=== PATIENT | male | born 1995 | race Caucasian/White ===

== ENCOUNTER 2016-04-29 13:52 | Emergency (ER) | payer BC ==
[~2016-04-29 13:52] MED LIST: CELE10TA PO; No home medications
--- NOTE | 2016-04-29 16:42 | EDDOCDS ---
Nurse's Notes [facility] Name: Ha Julian Age: 20 yrs Sex: Male : 1995 Arrival Date: 04/29/2016 Time: 13:52 Bed TR7 Private MD: NO PRIMARY PHYSICIAN, . Diagnosis: Chest pain on breathing;Nausea and vomiting Presentation: 04/29 14:13 Presenting complaint: Patient states: Went out to drink last night. Had 3 beers. when rs3 came home, had abdominal pain, vomiting and diarrhea, right side chest pain since this morning. Aspirin was not taken prior to arrival. Adult Sepsis Screening: The patient does not have new or worsening altered mentation. Patient's respiratory rate is less than 22. Systolic blood pressure is greater than 100. Patient has a qSOFA score of 0- Negative Sepsis Screen. Suicide/Homicide risk assessment- the patient denies having any suicidal and/or homicidal ideations and does not present with any other emotional, behavioral or mental health complaints. Status: Patient is not a center sales and service associate or dependent. Transition of care: patient was not received from another setting of care. 14:13 Acuity: LEANN Level 3 rs3 14:13 Method Of Arrival: Walkin/Carried/Asstd rs3 Triage Assessment: 14:16 General: Appears in no apparent distress. Pain: Location: anterior aspect of right rs3 upper chest and right breast. Pt Declines HIV testing. Cardiovascular: Chest pain is described as Pain is 5 out of 10 on a pain scale. radiates Does not radiate. episodes are intermittent began since this morning. Historical: - Allergies: no known allergies; - Home Meds: 1. none - PMHx: none; - PSHx: none; - Social history: Smoking status: Patient uses tobacco products, current some day smoker. No barriers to communication noted, The patient speaks fluent Serbian. - Family history: Not pertinent. - : The pt / caregiver states he / she is not on anticoagulants. Home medication list is obtained from the patient. - Exposure Risk Screening:: None identified. Screenin:14 Screening information is obtained from the patient. Fall risk: No risks identified. ms2 Assistance ADL's: requires no assistance with activities of daily living. Abuse/DV Screen: The patient / caregiver reports he/she is: not in a situation that causes fear, pain or injury. Nutritional screening: No deficits noted. Advance Directives: Currently, there is no health care proxy. There is no active DNR order. There is no living will. There is no Power of Diversity Manager. Advance directive information has not previously been placed in an [facility] medical record. Further advance directive information is declined. home support is adequate. Assessment: 16:14 General: Appears in no apparent distress. Pain: Location: chest Pain currently is 4 out ms2 of 10 on a pain scale. Neurological: Level of Consciousness is awake, alert, obeys commands. Cardiovascular: No deficits noted. Respiratory: Airway is patent Respiratory effort is even, unlabored, Respiratory pattern is regular, symmetrical. Derm: Skin is pink, warm & dry. Musculoskeletal: Range of motion intact in all extremities. 16:17 Cardiovascular: Rhythm is NA. ms2 Vital Signs: 13:53 BP 144 / 85; Pulse 113; Resp 18 S; Temp 98.3(O); Pulse Ox 100% on R/A; Weight 68.04 kg dd6 (R); Height 6 ft. 0 in. (182.88 cm) (R); 13:53 Body Mass Index 20.34 (68.04 kg, 182.88 cm) dd6 Vitals: 13:53 Log In Time: April 29, 2016 at 13:51. dd6 ED Course: 13:53 Patient visited by Tavon López PCA. dd6 13:53 NO PRIMARY PHYSICIAN, . is Private Physician. dd6 13:53 Patient moved to Waiting dd6 13:54 Patient moved to Pre RCE dd6 14:16 Triage Initiated rs3 15:27 Patient moved to Triage 3 ct3 15:34 Omid Woo PA-C is PHCP. cc10 15:34 Kiran Quach MD is Attending Physician. cc10 16:07 Patient visited by Omid Woo PA-C. cc10 16:07 Patient visited by Omid Woo PA-C. cc10 16:12 Patient visited by Yuri Roldan RN. ms2 16:15 The patient / caregiver is instructed regarding the plan of care and ED course. Cardiac ms2 monitoring not applicable on this patient. 16:15 No IV's were initiated during this patient's visit. No procedures done that require ms2 assistance. 16:16 [facility] Payment Agreement was scanned into [employer] and attached to record. jp5 16:17 Patient moved to TR7 ct3 Order Results: There are currently no results for this order. Outcome: 16:07 Discharge ordered by Provider. cc10 16:16 Discharge Assessment: patient administered narcotics - no. The following High Risk ms2 Discharge criteria are identified: None. Discharged to home ambulatory, with friend. Condition: stable. Discharge instructions given to patient, Instructed on discharge instructions, follow up and referral plans. medication usage, Demonstrated understanding of instructions, medications, Pt was receptive of discharge instructions/ teaching. Prescriptions given X 2 faxed. No special radiology studies were completed. Property sent home with patient. 16:41 Patient left the ED. ms2 Signatures: Yuri RoldanRN RN ms2 Tavon López, DIE WELDER DIE WELDER dd6 Ashley YouRN RN rs3 Alisa Ritter, DIE WELDER DIE WELDER ct3 Omid Woo, PA-C PA-C cc10 Amena Perez jp5 Corrections: (The following items were deleted from the chart) 16:15 16:12 General: Appears in no apparent distress, Behavior is cooperative, ms2 ms2 MTDD
--- NOTE | 2016-04-29 16:42 | EDDOCDS ---
Physician Documentation [facility] Name: Ha Julian Age: 20 yrs Sex: Male : 1995 Arrival Date: 04/29/2016 Time: 13:52 Bed TR7 Private MD: NO PRIMARY PHYSICIAN, . Disposition: 04/29/16 16:07 Discharged to Home/Self Care. Impression: Chest pain on breathing, Nausea and vomiting. - Condition is Stable. - Discharge Instructions: Costochondritis, Nausea and Vomiting. - Prescriptions for Naprosyn 500 mg Oral Tablet - take 1 tablet by ORAL route 2 times per day take with food; 30 tablet. ZOFRAN ODT 4 mg - dissolve 1 tablet by ORAL route 4 times per day As needed do not chew, do not swallow whole; 10 tablet. - Medication Reconciliation, Local Pharmacy Hours form. - Follow up: Emergency Department; When: As needed; Reason: Worsening of conditions. Follow up: Private Physician; When: Call to arrange an appointment; Reason: Wound/Symptom Recheck, Recheck today's complaints, Worsening of conditions, Continuance of care. - Problem is new. - Symptoms have improved. Historical: - Allergies: no known allergies; - Home Meds: 1. none - PMHx: none; - PSHx: none; - Social history: Smoking status: Patient uses tobacco products, current some day smoker. No barriers to communication noted, The patient speaks fluent German. - Family history: Not pertinent. - : The pt / caregiver states he / she is not on anticoagulants. Home medication list is obtained from the patient. - Exposure Risk Screening:: None identified. Vital Signs: 04/29 13:53 BP 144 / 85; Pulse 113; Resp 18 S; Temp 98.3(O); Pulse Ox 100% on R/A; Weight 68.04 kg dd6 / 150 lbs (R); Height 6 ft. 0 in. (182.88 cm) (R); 13:53 Body Mass Index 20.34 (68.04 kg, 182.88 cm) dd6 MDM: 16:16 [facility] Payment Agreement was scanned into [employer] and attached to record. jp5 16:16 Financial registration complete. jp5 Signatures: Yuri Roldan RN RN ms2 Ashley You RN RN rs3 Omid Woo, PA-C PA-C cc10 Amena Perez jp5 The chart was reviewed and I authenticate all verbal orders and agree with the evaluation and treatment provided.Attachments: 16:16 [facility] Payment Agreement jp5 MTDD
--- NOTE | 2016-05-01 17:42 | EDDOCDS ---
Nurse's Notes [facility] Name: Ha Julian Age: 20 yrs Sex: Male : 1995 Arrival Date: 04/29/2016 Time: 13:52 Bed TR7 Private MD: NO PRIMARY PHYSICIAN, . Diagnosis: Chest pain on breathing;Nausea and vomiting Presentation: 04/29 14:13 Presenting complaint: Patient states: Went out to drink last night. Had 3 beers. when rs3 came home, had abdominal pain, vomiting and diarrhea, right side chest pain since this morning. Aspirin was not taken prior to arrival. Adult Sepsis Screening: The patient does not have new or worsening altered mentation. Patient's respiratory rate is less than 22. Systolic blood pressure is greater than 100. Patient has a qSOFA score of 0- Negative Sepsis Screen. Suicide/Homicide risk assessment- the patient denies having any suicidal and/or homicidal ideations and does not present with any other emotional, behavioral or mental health complaints. Status: Patient is not a message and delivery service pricer or dependent. Transition of care: patient was not received from another setting of care. 14:13 Acuity: LEANN Level 3 rs3 14:13 Method Of Arrival: Walkin/Carried/Asstd rs3 Triage Assessment: 14:16 General: Appears in no apparent distress. Pain: Location: anterior aspect of right rs3 upper chest and right breast. Pt Declines HIV testing. Cardiovascular: Chest pain is described as Pain is 5 out of 10 on a pain scale. radiates Does not radiate. episodes are intermittent began since this morning. Historical: - Allergies: no known allergies; - Home Meds: 1. none - PMHx: none; - PSHx: none; - Social history: Smoking status: Patient uses tobacco products, current some day smoker. No barriers to communication noted, The patient speaks fluent Nicaraguan. - Family history: Not pertinent. - : The pt / caregiver states he / she is not on anticoagulants. Home medication list is obtained from the patient. - Exposure Risk Screening:: None identified. Screenin:14 Screening information is obtained from the patient. Fall risk: No risks identified. ms2 Assistance ADL's: requires no assistance with activities of daily living. Abuse/DV Screen: The patient / caregiver reports he/she is: not in a situation that causes fear, pain or injury. Nutritional screening: No deficits noted. Advance Directives: Currently, there is no health care proxy. There is no active DNR order. There is no living will. There is no Power of [place]. Advance directive information has not previously been placed in an [facility] medical record. Further advance directive information is declined. home support is adequate. Assessment: 16:14 General: Appears in no apparent distress. Pain: Location: chest Pain currently is 4 out ms2 of 10 on a pain scale. Neurological: Level of Consciousness is awake, alert, obeys commands. Cardiovascular: No deficits noted. Respiratory: Airway is patent Respiratory effort is even, unlabored, Respiratory pattern is regular, symmetrical. Derm: Skin is pink, warm & dry. Musculoskeletal: Range of motion intact in all extremities. 16:17 Cardiovascular: Rhythm is NA. ms2 Vital Signs: 13:53 BP 144 / 85; Pulse 113; Resp 18 S; Temp 98.3(O); Pulse Ox 100% on R/A; Weight 68.04 kg dd6 (R); Height 6 ft. 0 in. (182.88 cm) (R); 13:53 Body Mass Index 20.34 (68.04 kg, 182.88 cm) dd6 Vitals: 13:53 Log In Time: April 29, 2016 at 13:51. dd6 ED Course: 13:53 Patient visited by Tavon López PCA. dd6 13:53 NO PRIMARY PHYSICIAN, . is Private Physician. dd6 13:53 Patient moved to Waiting dd6 13:54 Patient moved to Pre RCE dd6 14:16 Triage Initiated rs3 15:27 Patient moved to Triage 3 ct3 15:34 Omid Woo PA-C is PHCP. cc10 15:34 Kiran Quach MD is Attending Physician. cc10 16:07 Patient visited by Omid Woo PA-C. cc10 16:07 Patient visited by Omid Woo PA-C. cc10 16:12 Patient visited by Yuri Roldan RN. ms2 16:15 The patient / caregiver is instructed regarding the plan of care and ED course. Cardiac ms2 monitoring not applicable on this patient. 16:15 No IV's were initiated during this patient's visit. No procedures done that require ms2 assistance. 16:16 [facility] Payment Agreement was scanned into [employer] and attached to record. jp5 16:17 Patient moved to TR7 ct3 20:06 Patient name changed from Ha\Molina\Kam\S\Eliel\S\ to Ha\S\Taiwo\S\Eliel. EDMS 04/30 11:10 T-Sheet-- Draft Copy was scanned into [employer] and attached to record. gb Order Results: There are currently no results for this order. Outcome: 04/29 16:07 Discharge ordered by Provider. cc10 16:16 Discharge Assessment: patient administered narcotics - no. The following High Risk ms2 Discharge criteria are identified: None. Discharged to home ambulatory, with friend. Condition: stable. Discharge instructions given to patient, Instructed on discharge instructions, follow up and referral plans. medication usage, Demonstrated understanding of instructions, medications, Pt was receptive of discharge instructions/ teaching. Prescriptions given X 2 faxed. No special radiology studies were completed. Property sent home with patient. 16:41 Patient left the ED. ms2 Signatures: [facility] Yuri Roldan,RN RN ms2 Marie Lewis, Reg Reg gb Tavon López, NET SOLUTIONS ARCHITECT NET SOLUTIONS ARCHITECT dd6 Ashley You,RN RN rs3 Alisa Ritter, NET SOLUTIONS ARCHITECT NET SOLUTIONS ARCHITECT ct3 Omid Woo PA-C PAZaria cc10 Amena Perez jp5 Corrections: (The following items were deleted from the chart) 16:15 16:12 General: Appears in no apparent distress, Behavior is cooperative, ms2 ms2 Chart Complete MTDD
--- NOTE | 2016-05-01 17:42 | EDDOCDS ---
Physician Documentation [facility] Name: Ha Julian Age: 20 yrs Sex: Male : 1995 Arrival Date: 04/29/2016 Time: 13:52 Bed TR7 Private MD: NO PRIMARY PHYSICIAN, . Disposition: 04/29/16 16:07 Discharged to Home/Self Care. Impression: Chest pain on breathing, Nausea and vomiting. - Condition is Stable. - Discharge Instructions: Costochondritis, Nausea and Vomiting. - Prescriptions for Naprosyn 500 mg Oral Tablet - take 1 tablet by ORAL route 2 times per day take with food; 30 tablet. ZOFRAN ODT 4 mg - dissolve 1 tablet by ORAL route 4 times per day As needed do not chew, do not swallow whole; 10 tablet. - Medication Reconciliation, Local Pharmacy Hours form. - Follow up: Emergency Department; When: As needed; Reason: Worsening of conditions. Follow up: Private Physician; When: Call to arrange an appointment; Reason: Wound/Symptom Recheck, Recheck today's complaints, Worsening of conditions, Continuance of care. - Problem is new. - Symptoms have improved. Historical: - Allergies: no known allergies; - Home Meds: 1. none - PMHx: none; - PSHx: none; - Social history: Smoking status: Patient uses tobacco products, current some day smoker. No barriers to communication noted, The patient speaks fluent Kiswahili. - Family history: Not pertinent. - : The pt / caregiver states he / she is not on anticoagulants. Home medication list is obtained from the patient. - Exposure Risk Screening:: None identified. Vital Signs: 04/29 13:53 BP 144 / 85; Pulse 113; Resp 18 S; Temp 98.3(O); Pulse Ox 100% on R/A; Weight 68.04 kg dd6 / 150 lbs (R); Height 6 ft. 0 in. (182.88 cm) (R); 13:53 Body Mass Index 20.34 (68.04 kg, 182.88 cm) dd6 MDM: 16:16 [facility] Payment Agreement was scanned into [employer] and attached to record. jp5 16:16 Financial registration complete. jp5 04/30 11:10 T-Sheet-- Draft Copy was scanned into [employer] and attached to record. gb Signatures: Yuri Roldan RN RN ms2 Marie Lewis, Reg Reg gb Ashley You RN RN rs3 Omid Woo, PARodneyC PARodneyC cc10 Amena Perez jp5 The chart was reviewed and I authenticate all verbal orders and agree with the evaluation and treatment provided.Attachments: 04/29 16:16 [facility] [place] jp5 04/30 11:10 T-Sheet-- Draft Copy gb Chart Complete MTDD
--- NOTE | 2016-05-01 17:42 | EDDOCDS ---
Physician Documentation [facility] Name: Ha Julian Age: 20 yrs Sex: Male : 1995 Arrival Date: 04/29/2016 Time: 13:52 Bed TR7 Private MD: NO PRIMARY PHYSICIAN, . Disposition: 04/29/16 16:07 Discharged to Home/Self Care. Impression: Chest pain on breathing, Nausea and vomiting. - Condition is Stable. - Discharge Instructions: Costochondritis, Nausea and Vomiting. - Prescriptions for Naprosyn 500 mg Oral Tablet - take 1 tablet by ORAL route 2 times per day take with food; 30 tablet. ZOFRAN ODT 4 mg - dissolve 1 tablet by ORAL route 4 times per day As needed do not chew, do not swallow whole; 10 tablet. - Medication Reconciliation, Local Pharmacy Hours form. - Follow up: Emergency Department; When: As needed; Reason: Worsening of conditions. Follow up: Private Physician; When: Call to arrange an appointment; Reason: Wound/Symptom Recheck, Recheck today's complaints, Worsening of conditions, Continuance of care. - Problem is new. - Symptoms have improved. Historical: - Allergies: no known allergies; - Home Meds: 1. none - PMHx: none; - PSHx: none; - Social history: Smoking status: Patient uses tobacco products, current some day smoker. No barriers to communication noted, The patient speaks fluent Portuguese. - Family history: Not pertinent. - : The pt / caregiver states he / she is not on anticoagulants. Home medication list is obtained from the patient. - Exposure Risk Screening:: None identified. Vital Signs: 04/29 13:53 BP 144 / 85; Pulse 113; Resp 18 S; Temp 98.3(O); Pulse Ox 100% on R/A; Weight 68.04 kg dd6 / 150 lbs (R); Height 6 ft. 0 in. (182.88 cm) (R); 13:53 Body Mass Index 20.34 (68.04 kg, 182.88 cm) dd6 MDM: 16:16 [facility] Payment Agreement was scanned into [employer] and attached to record. jp5 16:16 Financial registration complete. jp5 04/30 11:10 T-Sheet-- Draft Copy was scanned into [employer] and attached to record. gb Signatures: Yuri Roldan RN RN ms2 Marie Lewis, Reg Reg gb Ashley You RN RN rs3 Omid Woo, PARodneyC PARodneyC cc10 Amena Perez jp5 The chart was reviewed and I authenticate all verbal orders and agree with the evaluation and treatment provided.Attachments: 04/29 16:16 [facility] [place] jp5 04/30 11:10 T-Sheet-- Draft Copy gb Chart Complete MTDD
== END 2016-04-29 16:41 | disposition home or self-care (01) ==
LOC: M ED 13:52
DX: R07.89 Other chest pain (principal); R11.2 Nausea with vomiting, unspecified; F17.210 Nicotine dependence, cigarettes, uncomplicated

== ENCOUNTER → 2016-10-17 | Outpatient (REF) | payer BC ==
[2016-10-17 12:27] LABS: ALBUMIN 4.4 GM/DL (3.2-5.2); ALBUMIN/GLOBULIN RATIO 1.57 (1.00-1.93); ALKALINE PHOSPHATASE 60 U/L (45-117); ALT/SGPT 19 U/L (12-78); ANION GAP 6 MEQ/L (8-16); AST/SGOT 7 U/L (15-37); BILIRUBIN,TOTAL 0.9 MG/DL (0.2-1.0); BLOOD UREA NITROGEN 18 MG/DL (7-18); CALCIUM LEVEL 9.4 MG/DL (8.5-10.1); CARBON DIOXIDE LEVEL 31 MEQ/L (21-32); CHLORIDE LEVEL 102 MEQ/L (98-107); CREATININE FOR GFR 0.91 MG/DL (0.70-1.30); GLOMERULAR FILTRATION RATE > 60.0 (>60); GLUCOSE, FASTING 108 MG/DL (70-105); POTASSIUM SERUM 3.7 MEQ/L (3.5-5.1); SODIUM LEVEL 139 MEQ/L (136-145); TOTAL PROTEIN 7.2 GM/DL (6.4-8.2)
== END ==
LOC: M SFHCPLAZ 07:48
PROVIDERS: ATTEND Physician Assistant
DX: F41.9 Anxiety disorder, unspecified (principal); F32.9 Major depressive disorder, single episode, unspecified; R53.83 Other fatigue

== ENCOUNTER 2018-01-31 16:29 | Emergency (ER) | payer OTHER, BC ==
[2018-01-31] MEDS: NORCO, ANEXSIA 5/325MG TABLET (HYDROcodone/ACETAMINOPHEN) PO (20:14)
[2018-01-31] MEDS: CYCLOBENZAPRINE 10 MG TAB PO (20:14)
== END 2018-01-31 20:34 | disposition home or self-care (01) ==
LOC: M ED 16:29
DX: S29.012A Strain of muscle and tendon of back wall of thorax, initial encounter (principal); S16.1XXA Strain of muscle, fascia and tendon at neck level, initial encounter; V43.52XA Car driver injured in collision with other type car in traffic accident, initial encounter; Y92.410 Unspecified street and highway as the place of occurrence of the external cause; Y93.9 Activity, unspecified; Y99.9 Unspecified external cause status; F32.9 Major depressive disorder, single episode, unspecified; Z79.899 Other long term (current) drug therapy
CPT/HCPCS: 72128

== ENCOUNTER 2018-02-17 14:29 | Emergency (ER) | payer OTHER, BC | END 2018-02-17 16:04 | disposition home or self-care (01) | LOC: M ED 14:29 | DX: S16.1XXA Strain of muscle, fascia and tendon at neck level, initial encounter (principal); S29.012A Strain of muscle and tendon of back wall of thorax, initial encounter; V49.9XXA Car occupant (driver) (passenger) injured in unspecified traffic accident, initial encounter | CPT/HCPCS: 99282 ==

== ENCOUNTER → 2019-02-08 | Outpatient (CLI) | payer BC ==
[~2019-02-08] MED LIST changes: +CITA40TA4; +CYCL5TAB PO; +HYDR-3363; +IBUP-1022 PO; +NAPR-837 PO; +ROBA500T PO; +TIZA2TA
--- NOTE | 2019-02-08 19:00 | REP ---
Clinical: Trauma. Technique: AP, lateral, bilateral oblique views of the right wrist . Findings: The carpal bones, surrounding osseous structures, soft tissues, and joint spaces are normal. There is no evidence for acute fracture or dislocation. No subcutaneous emphysema or radiodense foreign body. Impression: No acute fracture or dislocation. If the patient remains symptomatic consider reevaluation in 3-5 days including scaphoid views if necessary. Electronically Signed by Agustín Holt MD 02/08/2019 06:52 P
== END ==
LOC: M WUC 17:21
PROVIDERS: ATTEND Physician Assistant
DX: S60.211A Contusion of right wrist, initial encounter (principal); W18.30XA Fall on same level, unspecified, initial encounter; Y92.009 Unspecified place in unspecified non-institutional (private) residence as the place of occurrence of the external cause

== ENCOUNTER → 2019-05-06 | Outpatient (REF) | payer BC ==
[2019-05-06 11:03] LABS: ALBUMIN 4.6 GM/DL (3.2-5.2); ALT/SGPT 18 U/L (12-78); BILIRUBIN,TOTAL 0.5 MG/DL (0.2-1.0); BLOOD UREA NITROGEN 18 MG/DL (7-18); CALCIUM LEVEL 9.7 MG/DL (8.5-10.1); CARBON DIOXIDE LEVEL 32 MEQ/L (21-32); CHLORIDE LEVEL 105 MEQ/L (98-107); CHOLESTEROL LEVEL 165 MG/DL (<200); CREATININE FOR GFR 0.86 MG/DL (0.70-1.30); GLOMERULAR FILTRATION RATE > 60.0 (>60); GLUCOSE, FASTING 82 MG/DL (70-100); HDL CHOLESTEROL 44 MG/DL (>40); LDL CHOLESTEROL 89 MG/DL (<100); NON-HDL-C 121 MG/DL; POTASSIUM SERUM 4.1 MEQ/L (3.5-5.1); SODIUM LEVEL 139 MEQ/L (136-145); TOTAL 25(OH) VITAMIN D 14.3 NG/ML (30.0-100.0); TOTAL PROTEIN 7.5 GM/DL (6.4-8.2); TRIGLYCERIDES LEVEL 158 MG/DL (<150)
== END ==
LOC: M SFHCPLAZ 08:32
PROVIDERS: ATTEND Physician Assistant
DX: E55.9 Vitamin D deficiency, unspecified (principal)

== ENCOUNTER 2021-11-08 13:16 | Emergency (ER) | payer BC ==
[~2021-11-08] VITALS: Ht 182.9 cm; Wt 70.5 kg
[2021-11-08 13:16] VITALS: BP 132/93
[~2021-11-08 13:16] MED LIST changes: -CITA40TA4; +CITA40TA7
== END 2021-11-08 15:05 | disposition left against medical advice (07) ==
LOC: M ED 13:16
DX: R10.9 Unspecified abdominal pain (principal); Z53.9 Procedure and treatment not carried out, unspecified reason; J45.909 Unspecified asthma, uncomplicated; F41.9 Anxiety disorder, unspecified; F32.9 Major depressive disorder, single episode, unspecified; F12.10 Cannabis abuse, uncomplicated; Z87.01 Personal history of pneumonia (recurrent)

== ENCOUNTER → 2023-04-12 | Outpatient (REF) ==
[2023-04-12 14:27] LABS: RSV AMPLIFICATION NEGATIVE (NEGATIVE)
== END ==
LOC: M EMP 13:12
PROVIDERS: ATTEND Family Medicine
DX: Z20.822 Contact with and (suspected) exposure to COVID-19 (principal)

== ENCOUNTER → 2023-07-26 | Outpatient (REF) | LOC: M EMP 12:44 | PROVIDERS: ATTEND Family Medicine | DX: Z01.89 Encounter for other specified special examinations (principal) ==